=== PATIENT | female | born 2000 | race African-American/Black ===

== ENCOUNTER 2019-08-05 12:03 | Emergency (ER) | payer OTHER ==
[~2019-08-05] VITALS: Ht 152.4 cm; Wt 48.5 kg
[2019-08-05 12:12] VITALS: BP 159/78
[2019-08-05] MEDS ORDERED: XULANE PATCH1 EACH TOP (12:16)
== END 2019-08-05 14:11 | disposition home or self-care (01) ==
LOC: ER 12:03
DX: S61.213A Laceration without foreign body of left middle finger without damage to nail, initial encounter (principal); Z91.040 Latex allergy status; W26.0XXA Contact with knife, initial encounter; Y93.89 Activity, other specified; Y92.89 Other specified places as the place of occurrence of the external cause; Y99.8 Other external cause status